=== PATIENT | male | born 1985 | race Caucasian/White ===

== ENCOUNTER 2023-09-22 11:17 | Inpatient (IN) | payer MEDICARE, MEDICAID, SELFPAY ==
[2023-09-22] VITALS (12 sets, daily range): BP systolic 120–157; BP diastolic 64–94; PULSE 104–125; RESP 16–30; TEMP 36.8–36.9; O2SAT 93–98; BMI 46.0; BMI 43.2
--- NOTE | ~2023-09-22 | CT_ITS ---
EXAMINATION: CT ABDOMEN AND PELVIS WITH CONTRAST CLINICAL INFORMATION: Abdomen pain. Diarrhea COMPARISON: None available. TECHNIQUE: Multidetector volumetric images were obtained from the superior aspect of the liver through the pubic symphysis following administration 85 mL of Omnipaque 350 intravenous contrast. Sagittal and coronal reformatted images were obtained on the technologist's workstation. Oral contrast: No This CT examination was performed using dose optimization techniques as appropriate, variously including the following: *Automated exposure control *Adjustment of mA and/or kV according to patient size (this includes techniques or standardized protocols for targeted exams where dose is matched to indication/reason for exam; i.e. extremities or head) *Use of iterative reconstruction technique DLP: 1346 mGy-cm FINDINGS: There is severe artifact possibly related to habitus or positioning of the upper extremities. This limits the exam LUNG BASES: No suspicious abnormality in the visualized lower chest. LIVER, GALLBLADDER, AND BILIARY TREE: The right lobe of the liver measures 24.4 cm. This is more than 3 standard deviations above the mean expected. There is severe diffuse low-attenuation within the liver consistent with fatty change. There is some sparing around the gallbladder. There is no opaque gallstone. No definite biliary dilation PANCREAS: No large abnormality. SPLEEN: The spleen measures 11.9 cm. This is within one standard deviation above the mean expected. No suspicious focal lesion. ADRENAL GLANDS: No suspicious mass KIDNEYS AND URETERS: No dilation of the urinary collecting system. There is a circumscribed low attenuating round mass in the lower pole of the right kidney consistent with a cyst. This does not require any specific imaging follow-up. Attenuation values are unreliable given the artifact. BLADDER: Limited by artifact. No large abnormality. GASTROINTESTINAL TRACT: Limited by artifact. Large amount of fecal residue throughout the colon. No localized pericolonic fat stranding. No CT evidence of acute appendicitis. No distention of the stomach. Multiple scattered top normal caliber small bowel loops. There is no definite omental or mesenteric mass. ABDOMINAL WALL: No significant hernia is appreciated. LYMPH NODES: There are some scattered nonspecific inguinal lymph nodes. There is no significant free intraperitoneal fluid. VASCULAR: There is no abdominal aortic aneurysm. The portal vein enhances. PELVIC VISCERA: Limited by artifact. No definite abnormality OSSEOUS STRUCTURES: No suspicious focal lesion CT/CT abdomen pelvis w IV con IMPRESSION: Markedly limited exam. No etiology for diarrhea demonstrated. No abscess or bowel obstruction demonstrated. Hepatomegaly with severe fatty change. Fleischner guidelines were followed.
--- NOTE | ~2023-09-22 | XR_ITS ---
EXAMINATION: XR CHEST CLINICAL INFORMATION: DKA. COMPARISON: None available. TECHNIQUE: Frontal view of the chest was obtained. FINDINGS: Low lung volumes with diffuse interstitial prominence. No dense consolidation. No pleural effusion or pneumothorax. Normal appearance of the cardiomediastinal silhouette accounting for the limitations of portable technique. No acute osseous findings. XR/XR chest 1V IMPRESSION: Diffuse interstitial prominence is indeterminate and could be related with bronchovascular crowding, small airways disease or atypical/viral infection.. No dense consolidation or pleural effusion.
--- NOTE | 2023-09-22 11:30 | ED.NAVMDI ---
HPI - Nausea/Vomiting/Diarrhea General Chief complaint: Abdominal Pain Stated complaint: NAUSEA VOMITING Time Seen by Provider: 09/22/23 11:23 Source: patient History of Present Illness HPI Narrative: This is a 37 years old male presented to the emergency department complaining of nausea and vomiting, patient has history of bipolar disorder, development delayed, obesity, hypertension and diabetes. He is currently staying an psychiatric facility. He was sent here for evaluation MD elicited complaint: nausea and vomiting Pertinent past history: other (diabetes) Onset (ago): week(s) (2) Description of vomiting: watery Associated nausea: Yes Associated abdominal pain: Yes Radiation: periumbilical Exacerbating factors: none Relieving factors: none Related Data Home Medications ?Medication ?Instructions ?Recorded ?Confirmed acetaminophen 325 mg tablet 650 mg PO Q6H PRN Pain 09/22/23 09/22/23 aluminum-mag hydroxide-simethicone 30 ml PO Q6H PRN Dyspepsia 09/22/23 09/22/23 200 mg-200 mg-20 mg/5 mL oral susp atorvastatin 20 mg tablet 20 mg PO BEDTIME 09/22/23 09/22/23 cyanocobalamin (vitamin B-12) 2,000 mcg PO DAILY 09/22/23 09/22/23 1,000 mcg tablet diclofenac sodium 1 % topical gel 4 g topical TID PRN arthritis 09/22/23 09/22/23 hydroxyzine pamoate 50 mg capsule 50 mg PO Q6H PRN Restlessness 09/22/23 09/22/23 ketoconazole 2 % shampoo 1 appl topical DAILY 09/22/23 09/22/23 lisinopril 20 mg tablet 20 mg PO DAILY 09/22/23 09/22/23 magnesium hydroxide 400 mg/5 mL 30 ml PO DAILY PRN Constipation 09/22/23 09/22/23 oral suspension (Milk of Magnesia) metformin 1,000 mg tablet 1,000 mg PO BIDAC 09/22/23 09/22/23 mineral oil-hydrophil petrolat 1 appl topical BID 09/22/23 09/22/23 topical ointment olanzapine 15 mg tablet 15 mg PO BEDTIME 09/22/23 09/22/23 olanzapine 5 mg tablet 5 mg PO Q6H PRN Agitation 09/22/23 09/22/23 oxcarbazepine 150 mg tablet 150 mg PO BID 09/22/23 09/22/23 oxcarbazepine 300 mg tablet 300 mg PO BID 09/22/23 09/22/23 polyethylene glycol 3350 17 17 g PO DAILY PRN Constipation 09/22/23 09/22/23 gram/dose oral powder (Miralax) trazodone 50 mg tablet 50 mg PO BEDTIME PRN Insomnia 09/22/23 09/22/23 urea 40 % topical cream 1 appl topical BID PRN Dry Skin 09/22/23 09/22/23 Allergies Allergy/AdvReac Type Severity Reaction Status Date / Time No Known Allergies Allergy Verified 09/22/23 11:28 Review of Systems ENT: Reports system reviewed and no additional complaints, except as documented Gastrointestinal: Gastrointestinal: Reports nausea and Reports vomiting PMFSH Past Medical History Attestation statement: The following information was validated with the patient. Source: unable to obtain Social History Social History Advance Directives: No Advance Directives Information Provided: No Do you have a plan to hurt others: No Plan Physical Exam Vital Signs: Vital Signs: Last Vital Signs Temp 98.4 F 09/22/23 11:33 Pulse 125 H 09/22/23 15:23 Resp 16 09/22/23 15:23 BP 120/64 09/22/23 15:23 Pulse Ox 93 09/22/23 15:23 O2 Del Method Room Air 09/22/23 15:23 BMI result Body Mass Index 43.2 No toxic-appearing Const: General: cooperative Nutritional Appearance: well nourished Orientation/consciousness: patient oriented x3 Limitations: no limitations HEENT: Head: Yes normal to inspection General nose exam: Normal external nose present Face and sinus: Yes normal facial exam Mouth: Normal oral and palatal mucosa present Neck: Neck: Yes normal visual inspection and Yes full ROM Chest: Chest palpation & inspection: normal inspection of the chest Resp: Effort & Inspection: normal respiratory effort Auscultation: clear to auscultation bilaterally Cardio: Jugular venous distension: no JVD Rate: regular rate Rhythm: regular rhythm GI: Inspection: Yes normal to inspection Palpation (GI): Soft to palpation, nontender and no guarding Auscultation: normal bowel sounds Skin: General skin exam: no rashes or lesions noted Neuro: General: patient oriented x3 Course Reevaluation(s) Reevaluation #1: we are waiting for chemistry result,just spoke with labs specimen was hemolized they are requesting new chemestry sample nurse will send new chemistry,capillary blood sugar high d.d. DKA Time: 13:32 Reevaluation #2: ICU doctor here Medications Administered Generic Name Dose Route Start Last Admin Trade Name Freq PRN Reason Stop Dose Admin Heparin Sodium (Porcine) 5,000 unit 09/22/23 14:15 09/22/23 14:33 Heparin Sodium,Porcine 5,000 Unit/Ml Vial SUBCUT 5,000 unit Q8H AGNES Administration Insulin Human Regular 100 unit in 100 mls @ 8 mls/hr 09/22/23 13:45 09/22/23 15:27 Myxredlin IVCONT 4 unit/hr .[id number] AGNES 4 mls/hr Titration Protocol 8 UNIT/HR Pantoprazole Sodium 40 mg 09/22/23 15:00 09/22/23 15:05 Pantoprazole Sodium 40 Mg/10 Ml Vial IVPUSH 40 mg DAILY@0630 AGNES Administration Discontinued Medications Generic Name Dose Route Start Last Admin Trade Name Freq PRN Reason Stop Dose Admin Sodium Chloride 1,000 mls @ 999 mls/hr 09/22/23 11:30 09/22/23 14:37 Ns IVCONT 09/22/23 12:30 Infused .Q1H1M AGNES Infusion Sodium Chloride 1,000 mls @ 999 mls/hr 09/22/23 13:00 09/22/23 13:58 Ns IVCONT 09/22/23 14:00 0 mls/hr .Q1H1M AGNES Infusion Lactated Ringer's 1,000 mls @ 999 mls/hr 09/22/23 14:06 09/22/23 14:53 Lr IV 09/22/23 15:06 999 mls/hr .Q1H1M ONE Administration Lactated Ringer's 500 mls @ 999 mls/hr 09/22/23 14:07 09/22/23 15:42 Lr IV 09/22/23 14:37 Infused .Q31M ONE Infusion Ceftriaxone Sodium 2 gm/ 50 mls @ 100 mls/hr 09/22/23 14:07 09/22/23 15:42 Sodium Chloride IV 09/22/23 14:36 Infused DAILY ONE Infusion Insulin Human Regular 10 unit 07/21/24 12:52 09/22/23 13:00 Insulin Regular, Human 100 Unit/Ml 10 Ml Vial IVPUSH 09/22/23 12:53 10 unit ONCE ONE Administration Lorazepam 1 mg 09/22/23 14:00 09/22/23 14:04 Lorazepam 2 Mg/Ml Vial IVPUSH 09/22/23 14:01 1 mg ONCE ONE Administration Ondansetron HCl 4 mg 09/22/23 11:36 09/22/23 12:09 Ondansetron Hcl 4 Mg/2 Ml Vial IVPUSH 09/22/23 11:37 4 mg ONCE ONE Administration Procedures EJ/Peripheral Line Arm L: Time Out Performed: Yes Skin Cleansed in Sterile Fashion: Yes Size (gauge): 20 IV Secured and Dressing Applied: Yes Patient Tolerated Procedure: well Additional Comments: under US cannulated left brachial vein with 20 G good flash good blood return Medical Decision Making Medical Decision Making MDM Narrative: Patient presented with nausea vomiting will check labs administer fluid antiemetic reassess Differential Diagnosis Differential Diagnoses: The differential diagnosis associated with the presentation includes Small-bowel obstruction/DKA/dehydration/gastroenteritis Admission/Observation Consideration of admission/observation: Escalation of care including admission/observation considered Consult Healthcare Provider spoke with ICY team Lab Data 09/22/23 14:57 09/22/23 14:57 Labs: Lab Results 09/22/23 09/22/23 09/22/23 Range/Units 12:00 12:46 12:50 WBC 18.2 H (4.8-10.8) X10*3/uL RBC 4.98 (4.60-5.80) X10*6/uL Hgb 14.5 (14.0-18.0) g/dl Hct 44.2 (42.0-52.0) % MCV 88.8 (80.0-98.0) fL MCH 29.1 (27.0-33.0) pg MCHC 32.8 (31.0-36.0) g/dl RDW 12.9 (11.0-16.0) % Plt Count 390 (160-400) X10*3/uL MPV 10.6 (9.4-12.4) fL Immature Gran % (Auto) 0.4 (0.0-0.4) % Neut % (Auto) 84.9 H (45-73) % Lymph % (Auto) 7.5 L (20-40) % Dent % (Auto) 7.0 (2-11) % Eos % (Auto) 0.0 (0-4) % Baso % (Auto) 0.2 (0-2) % Lymph # (Auto) 1.4 (1.2-4.9) X10*3/uL Dent # (Auto) 1.3 H (0.1-1.2) X10*3/uL Eos # (Auto) 0.0 (0.0-0.4) X10*3/uL Baso # (Auto) 0.0 (0.0-0.2) X10*3/uL Abs Immat Gran (auto) 0.08 H (0.00-0.03) X10*3/uL Absolute Neuts (auto) 15.4 H (2.0-8.3) x10*3/uL Absolute Nucleated RBC 0.000 (0.0-0.012) X10*3/uL Nucleated RBC % (auto) 0.0 (0.0-0.2) /100WBC Sodium (135-145) mmol/L Potassium (3.3-5.1) mmol/L Chloride (96-108) mmol/L Carbon Dioxide (22-29) mmol/L Anion Gap (12-20) BUN (9-16) mg/dL Creatinine (0.5-1.4) mg/dL Estim Creat Clear Calc Estimated GFR POC Glucose > 600 H* > 600 H* (60-115) mg/dL Random Glucose (60-115) mg/dL Calcium (8.4-10.2) mg/dL Total Bilirubin (0.0-1.0) mg/dL AST (5-37) U/L ALT (0-40) U/L Alkaline Phosphatase (39-117) U/L Total Protein (6.5-8.0) g/dL Albumin (3.5-5.0) g/dL Lipase 17 (8-78) U/L Beta-Hydroxybutyrate (0.02-0.27) mmol/L //24 Range/Units 13:06 WBC (4.8-10.8) X10*3/uL RBC (4.60-5.80) X10*6/uL Hgb (14.0-18.0) g/dl Hct (42.0-52.0) % MCV (80.0-98.0) fL MCH (27.0-33.0) pg MCHC (31.0-36.0) g/dl RDW (11.0-16.0) % Plt Count (160-400) X10*3/uL MPV (9.4-12.4) fL Immature Gran % (Auto) (0.0-0.4) % Neut % (Auto) (45-73) % Lymph % (Auto) (20-40) % Dent % (Auto) (2-11) % Eos % (Auto) (0-4) % Baso % (Auto) (0-2) % Lymph # (Auto) (1.2-4.9) X10*3/uL Dent # (Auto) (0.1-1.2) X10*3/uL Eos # (Auto) (0.0-0.4) X10*3/uL Baso # (Auto) (0.0-0.2) X10*3/uL Abs Immat Gran (auto) (0.00-0.03) X10*3/uL Absolute Neuts (auto) (2.0-8.3) x10*3/uL Absolute Nucleated RBC (0.0-0.012) X10*3/uL Nucleated RBC % (auto) (0.0-0.2) /100WBC Sodium 130 L (135-145) mmol/L Potassium 6.0 H* (3.3-5.1) mmol/L Chloride 93 L (96-108) mmol/L Carbon Dioxide 12 L (22-29) mmol/L Anion Gap 31 H (12-20) BUN 24 H (9-16) mg/dL Creatinine 1.99 H (0.5-1.4) mg/dL Estim Creat Clear Calc 71.4 Estimated GFR 38 POC Glucose (60-115) mg/dL Random Glucose 898 H* (60-115) mg/dL Calcium 10.2 (8.4-10.2) mg/dL Total Bilirubin 0.5 (0.0-1.0) mg/dL AST 14 (5-37) U/L ALT 40 (0-40) U/L Alkaline Phosphatase 136 H (39-117) U/L Total Protein 7.6 (6.5-8.0) g/dL Albumin 4.1 (3.5-5.0) g/dL Lipase (8-78) U/L Beta-Hydroxybutyrate 7.91 H (0.02-0.27) mmol/L Critical Care Time Critical Care Time Critical Care Time: Yes Total Critical Care Time: 90 Attestation: taking care of pt ,speaking to the staff of [facility] hospital Discharge Plan Discharge Clinical Impression: DKA (diabetic ketoacidosis) Qualifiers: Diabetes mellitus type: type 2 Diabetes mellitus complication detail: without coma Qualified Code(s): E11.10 - Type 2 diabetes mellitus with ketoacidosis without coma Patient Disposition: Admitted As Inpatient
--- NOTE | 2023-09-22 11:43 | PC.NURSE ---
Pt. is on monitoring specialist at this time.
[2023-09-22 12:05] LABS: Basophils Percent Auto 0.2 % (0-2); Hematocrit 44.2 % (42.0-52.0); Hemoglobin 14.5 g/dl (14.0-18.0); Imm Gran Abs Auto 0.08 X10*3/uL (0.00-0.03); Imm Gran Pct Auto 0.4 % (0.0-0.4); Lymphocytes Absolute Auto 1.4 X10*3/uL (1.2-4.9); Lymphocytes Percent Auto 7.5 % (20-40); MANUAL DIFF FLAG NO; Mean Corpuscular HGB Conc 32.8 g/dl (31.0-36.0); Mean Corpuscular Hemoglobin 29.1 pg (27.0-33.0); Mean Corpuscular Volume 88.8 fL (80.0-98.0); Mean Platelet Volume 10.6 fL (9.4-12.4); Monocytes Absolute Auto 1.3 X10*3/uL (0.1-1.2); Neutrophils Absolute Auto 15.4 x10*3/uL (2.0-8.3); Neutrophils Percent Auto 84.9 % (45-73); Platelet Count 390 X10*3/uL (160-400); Red Blood Count 4.98 X10*6/uL (4.60-5.80); Red Cell Distribution Width 12.9 % (11.0-16.0); White Blood Count 18.2 X10*3/uL (4.8-10.8)
[2023-09-22] MEDS: ondansetron HCL 4 MG/2 ML VIAL IVPUSH (12:09)
[2023-09-22] MEDS: 0.9 % Sodium Chloride 1,000 ML 999 ML IVCONT ×2 (12:09→13:01)
[2023-09-22 12:58] LABS: Glucose, Whole Blood > 600 mg/dL (60-115)
[2023-09-22 12:58] LABS: Glucose, Whole Blood > 600 mg/dL (60-115)
[2023-09-22] MEDS: Insulin Regular, Human 100 UNIT/ML 10 ML VIAL 10 UNIT IVPUSH (13:00)
--- NOTE | 2023-09-22 13:32 | ECG_ITS ---
Test Reason : CHEST PAIN Blood Pressure : / mmHG Vent. Rate : 120 BPM Atrial Rate : 120 BPM P-R Int : 140 ms QRS Dur : 090 ms QT Int : 318 ms P-R-T Axes : 043 027 026 degrees QTc Int : 449 ms Sinus tachycardia cannot exclude old Septal infarct , age undetermined ; can also be from body habitus and lead placement. Abnormal ECG No previous ECGs available Referred By: Koffi Aguilar Electronically Signed By:PILO AGUILAR
[2023-09-22 13:41] LABS: Alanine Aminotransferase 40 U/L (0-40); Albumin Level 4.1 g/dL (3.5-5.0); Alkaline Phosphatase 136 U/L (39-117); Anion Gap 31 (12-20); Aspartate Amino Transferase 14 U/L (5-37); Beta-Hydroxybutyrate 7.91 mmol/L (0.02-0.27); Bilirubin Total 0.5 mg/dL (0.0-1.0); Blood Urea Nitrogen 24 mg/dL (9-16); Calcium 10.2 mg/dL (8.4-10.2); Carbon Dioxide 12 mmol/L (22-29); Chloride 93 mmol/L (96-108); Creatinine Clr Calc Pharmacy 71.4; Estimated Glomerular Filt Rate 38; Glucose Random 898 mg/dL (60-115); Sodium 130 mmol/L (135-145); Total Protein 7.6 g/dL (6.5-8.0)
[2023-09-22 13:42] LABS: Lipase 17 U/L (8-78)
[2023-09-22] MEDS: LORazepam 2 MG/ML VIAL 1 MG IVPUSH (14:04)
[2023-09-22] MEDS: Insulin Regular/NS 100 UNIT/100 ML PLAST..BAG 8 UNIT IVCONT (14:08)
--- NOTE | 2023-09-22 14:24 | P.HPCC_ITS ---
History of Present Illness Date of Service: 09/22/23 Chief Complaint: vomiting, diarrhea 37-year-old male with past medical history of type 1 diabetes mellitus, obesity, mental retardation, schizophrenia lives in a retirement is a very poor historian and is unable to give me any proper history. States he presented to the hospital because he vomited so much that his bed was full of vomitus, he also has been having diarrhea but not showed how long has been having diarrhea. He denies any abdominal pain, denies any burning micturition. Upon asking if he has any cough he says he always has cough. He also says he has decrease in appetite and feels like not eating any food for a very very long time that he is not able to quantify. In the ED he was found to be in severe DKA with potassium 7, bicarb 12, anion gap 30 along with CHARLEE so MICU was consulted for admission. Review of Systems 2 Constitutional: Constitutional: Reports anorexia, Denies body ache(s) and Denies chills Eyes: Eyes: Denies blurry vision, Denies exophthalmos and Denies change in vision ENT: Denies Normal hearing present and Denies bleeding gums Cardiovascular: Cardiovascular: Denies Abdominal Cramping after Meds, Denies Abdominal Distension, Denies chest pain and Denies chest pain at rest Respiratory: Respiratory: Denies chest congestion and Denies cough Gastrointestinal: Gastrointestinal: Denies abdominal pain and Denies belching Genitourinary: Genitourinary: Denies change in libido and Denies hematuria Musculoskeletal: Musculoskeletal: Denies back pain and Denies myalgias Neurologic: Denies Normal hearing present and Denies behavioral changes Psychiatric: Psychiatric: Denies abnormal sleep pattern, Denies anxiety, Denies behavioral changes and Denies change in libido Endocrine: Endocrine: Denies change in libido [facility] Social History Social History Advance Directives: No Advance Directives Information Provided: No Do you have a plan to hurt others: No Plan Meds Allergies Allergy/AdvReac Type Severity Reaction Status Date / Time No Known Allergies Allergy Verified 09/22/23 11:28 Active Medications: Current Medications Heparin Sodium (Porcine) (Heparin Sodium,Porcine 5,000 Unit/Ml Vial) 5,000 unit SUBCUT Q8H AGNES Insulin Human Regular (Myxredlin) 100 unit in 100 mls @ 8 mls/hr IVCONT .[id number] [facility]; Protocol Last Admin: 09/22/23 14:08 Dose: 8 unit/hr, 8 mls/hr Dextrose (D10) 250 mls @ 750 mls/hr IV Q30M PRN PRN Reason: BG <70 Dextrose (D10) 250 mls @ 750 mls/hr IV Q30M PRN PRN Reason: BG <70 Lactated Ringer's (Lr) 1,000 mls @ 999 mls/hr IV .Q1H1M ONE Stop: 09/22/23 15:06 Lactated Ringer's (Lr) 1,000 mls @ 150 mls/hr IVCONT .Q6H40M [facility] Lactated Ringer's (Lr) 500 mls @ 999 mls/hr IV .Q31M ONE Stop: 09/22/23 14:37 Ceftriaxone Sodium 2 gm/ (Sodium Chloride) 50 mls @ 100 mls/hr IV DAILY ONE Stop: 09/22/23 14:36 Physical Exam 2 Vital Signs: Vital Signs: Last Vital Signs Temp 98.4 F 09/22/23 11:33 Pulse 121 H 09/22/23 14:23 Resp 24 H 09/22/23 14:23 BP 143/78 H 09/22/23 14:23 Pulse Ox 95 09/22/23 14:23 O2 Del Method Room Air 09/22/23 14:23 BMI result Body Mass Index 43.2 General: In mild acute distress, tired appearing Nutritional Appearance: well nourished and overweight Eyes: appearance normal, both eyes and all related structures; Alignment and Position: alignment normal and position normal Neck: No lymphadenopathy, no thyromegaly Resp: bilateral air entry equal, no added sounds present Cardio: Regular rate, regular rhythm; Heart sounds: S1 normal heart sound present and S2 normal heart sound present GI: soft, nontender, no guarding, no hepatosplenomegaly : bladder normal to inspection, bladder normal to palpation, no renal angle tenderness Skin: no rashes or lesions noted and elasticity normal Neuro: oriented to person, oriented to place, oriented to time and moves all extremities Neuro: Cranial nerves: No Normal hearing present Results Labs 09/22/23 12:00 09/22/23 13:06 Labs: Laboratory Results - last 24 hr 09/22/23 09/22/23 09/22/23 12:00 12:46 12:50 MCV 88.8 MCH 29.1 MCHC 32.8 RDW 12.9 Plt Count 390 MPV 10.6 Immature Gran % (Auto) 0.4 Neut % (Auto) 84.9 H Lymph % (Auto) 7.5 L [place] % (Auto) 7.0 Eos % (Auto) 0.0 Baso % (Auto) 0.2 Lymph # (Auto) 1.4 [place] # (Auto) 1.3 H Eos # (Auto) 0.0 Baso # (Auto) 0.0 Abs Immat Gran (auto) 0.08 H Absolute Neuts (auto) 15.4 H Absolute Nucleated RBC 0.000 Nucleated RBC % (auto) 0.0 Anion Gap Estim Creat Clear Calc Estimated GFR POC Glucose > 600 H* > 600 H* Random Glucose Calcium Total Bilirubin AST ALT Alkaline Phosphatase Total Protein Albumin Lipase 17 Beta-Hydroxybutyrate 09/22/23 13:06 MCV MCH MCHC RDW Plt Count MPV Immature Gran % (Auto) Neut % (Auto) Lymph % (Auto) [place] % (Auto) Eos % (Auto) Baso % (Auto) Lymph # (Auto) [place] # (Auto) Eos # (Auto) Baso # (Auto) Abs Immat Gran (auto) Absolute Neuts (auto) Absolute Nucleated RBC Nucleated RBC % (auto) Anion Gap 31 H Estim Creat Clear Calc 71.4 Estimated GFR 38 POC Glucose Random Glucose 898 H* Calcium 10.2 Total Bilirubin 0.5 AST 14 ALT 40 Alkaline Phosphatase 136 H Total Protein 7.6 Albumin 4.1 Lipase Beta-Hydroxybutyrate 7.91 H Assessment and Plan (1) DKA (diabetic ketoacidosis): Qualifiers: Diabetes mellitus complication detail: without coma Diabetes mellitus type: type 2 Qualified Code(s): E11.10 - Type 2 diabetes mellitus with ketoacidosis without coma Status: Acute (2) Uncontrolled blood glucose: Status: Acute (3) Acute kidney injury: Status: Acute (4) Obesity: Status: Acute Plan Diabetic ketoacidosis: Possibly precipitated by a GI infection very complaints of diarrhea We will start the patient on insulin drip and continue insulin drip until the gap closes according to DKA protocol We will check blood sugars q.1h hours and titrate the insulin drip accordingly We will get BMP, Mag phos every 4 hours NPO until the gap closes We will give him 2 L of LR boluses followed by 150 cc/hour of LR Acute kidney injury: Secondary to DKA and volume depletion Should correct with correction of the DKA Leukocytosis: Secondary to GI infection We will get chest x-ray, urinalysis and blood cultures We will start on empiric ceftriaxone Prophylaxis: Heparin, pantoprazole Total time managing care of this patient today: 40 minutes.
[2023-09-22 14:27] LABS: VBG Base Excess -10.7 mmol/L; VBG HCO3 15 mmol/L (22-26); VBG pCO2 36 mmHg; VBG pH 7.24 (7.32-7.43); VBG pO2 50 mmHg
[2023-09-22 14:29] LABS: Venous Blood Gas Refer to POC result
[2023-09-22] MEDS: Heparin Sodium,Porcine 5,000 UNIT/ML VIAL 5000 UNIT SUBCUT ×2 (14:33→23:05)
[2023-09-22 14:48] LABS: Glucose, Whole Blood > 600 mg/dL (60-115)
[2023-09-22] MEDS: Lactated Ringers 500 ML 999 ML IV (14:52)
[2023-09-22] MEDS: Lactated Ringers 1,000 ML 999 ML IV (14:53)
--- NOTE | 2023-09-22 14:57 | PC.NURSE ---
#20 placed in the right FA, IV LR running per MAR
--- NOTE | 2023-09-22 15:02 | PHA.MEDREC ---
Pharmacy Consult ? Medication Reconciliation Pharmacy has completed the medication reconciliation. Used list from facility
[2023-09-22] MEDS: cefTRIAXone sodium 2 GM in 0.9 % Sodium Chloride 50 ML IV (15:05)
[2023-09-22] MEDS: Pantoprazole Sodium 40 MG/10 ML VIAL IVPUSH (15:05)
[2023-09-22 15:10] LABS: Hematocrit 42.8 % (42.0-52.0); Hemoglobin 14.3 g/dl (14.0-18.0); Mean Corpuscular HGB Conc 33.4 g/dl (31.0-36.0); Mean Corpuscular Hemoglobin 29.1 pg (27.0-33.0); Mean Corpuscular Volume 87.2 fL (80.0-98.0); Mean Platelet Volume 10.4 fL (9.4-12.4); Platelet Count 400 X10*3/uL (160-400); Red Blood Count 4.91 X10*6/uL (4.60-5.80); Red Cell Distribution Width 12.5 % (11.0-16.0); White Blood Count 18.1 X10*3/uL (4.8-10.8)
--- NOTE | 2023-09-22 15:11 | PC.NURSE ---
#20 placed in the left wrist
[2023-09-22 15:22] LABS: Magnesium 2.4 mg/dL (1.6-2.6)
[2023-09-22 15:26] LABS: Anion Gap 28 (12-20); Blood Urea Nitrogen 21 mg/dL (9-16); Calcium 10.1 mg/dL (8.4-10.2); Carbon Dioxide 13 mmol/L (22-29); Chloride 100 mmol/L (96-108); Creatinine Clr Calc Pharmacy 80.8; Estimated Glomerular Filt Rate 44; Glucose Random 634 mg/dL (60-115); Potassium 5.2 mmol/L (3.3-5.1); Sodium 136 mmol/L (135-145)
[2023-09-22 15:30] LABS: Glucose, Whole Blood 536 mg/dL (60-115)
[2023-09-22 15:43] LABS: Appearance Urine Clear; Color Urine Yellow; Glucose Urine UA >=1000 mg/dL (Negative); Leukocyte Esterase Urine Negative (Negative); Nitrite Urine Negative (Negative); Specific Gravity - Urine >= 1.030 (1.005-1.025); UMIC TRIGGER UACC YES; Urine Blood Negative (Negative); Urine Ketones >=160 mg/dL (Negative); Urine Protein Negative (Neg-Trace)
[2023-09-22 16:19] LABS: Bacteria Urine None Seen (None Seen); Hyaline Casts Urine 0-2 /LPF (0-2); RBC Urine 0-2 /HPF (0-2); Squamous Epithelial Cell Urine 0-2 /HPF (0-2); WBC Urine 0-5 /HPF (0-5)
[2023-09-22] MEDS: Lactated Ringers 1,000 ML 150 ML IVCONT ×2 (16:45→23:23)
[2023-09-22 17:04] LABS: Glucose, Whole Blood 421 mg/dL (60-115)
[2023-09-22 18:03] LABS: Glucose, Whole Blood 358 mg/dL (60-115)
[2023-09-22 18:57] LABS: Anion Gap 25 (12-20); Blood Urea Nitrogen 16 mg/dL (9-16); Calcium 9.6 mg/dL (8.4-10.2); Carbon Dioxide 14 mmol/L (22-29); Chloride 104 mmol/L (96-108); Creatinine Clr Calc Pharmacy 96.7; Estimated Glomerular Filt Rate 54; Glucose Random 415 mg/dL (60-115); Magnesium 2.1 mg/dL (1.6-2.6); Phosphorus 2.1 mg/dL (2.7-4.5); Potassium 5.1 mmol/L (3.3-5.1); Sodium 138 mmol/L (135-145)
[2023-09-22 19:05] LABS: Glucose, Whole Blood 344 mg/dL (60-115)
[2023-09-22 20:03] LABS: Glucose, Whole Blood 313 mg/dL (60-115)
[2023-09-22 21:11] LABS: Glucose, Whole Blood 286 mg/dL (60-115)
[2023-09-22 22:20] LABS: Glucose, Whole Blood 263 mg/dL (60-115)
[2023-09-22 23:06] LABS: Anion Gap 18 (12-20); Blood Urea Nitrogen 14 mg/dL (9-16); Calcium 9.1 mg/dL (8.4-10.2); Carbon Dioxide 20 mmol/L (22-29); Chloride 105 mmol/L (96-108); Creatinine Clr Calc Pharmacy 119.5; Estimated Glomerular Filt Rate > 60; Glucose Random 286 mg/dL (60-115); Potassium 3.9 mmol/L (3.3-5.1); Sodium 139 mmol/L (135-145)
[2023-09-22 23:12] LABS: Glucose, Whole Blood 260 mg/dL (60-115)
[2023-09-22] MEDS: Potassium Phosphate/NS 15 MMOL/250 ML PLAST..BAG 62.5 MMOL IV (23:26)
[2023-09-22 23:58] LABS: Glucose, Whole Blood 248 mg/dL (60-115)
[2023-09-23] VITALS (23 sets, daily range): BP systolic 108–155; BP diastolic 67–99; PULSE 87–103; RESP 12–30; TEMP 36.8–36.9; O2SAT 90–97; BMI 46.8
[2023-09-23] MEDS: Dextrose 5 % and Lactated Ring 1,000 ML 100 ML IVCONT ×3 (00:08→16:02)
[2023-09-23 01:04] LABS: Glucose, Whole Blood 252 mg/dL (60-115)
[2023-09-23 01:58] LABS: Glucose, Whole Blood 277 mg/dL (60-115)
[2023-09-23 02:57] LABS: Anion Gap 16 (12-20); Blood Urea Nitrogen 12 mg/dL (9-16); Calcium 9.1 mg/dL (8.4-10.2); Carbon Dioxide 23 mmol/L (22-29); Chloride 107 mmol/L (96-108); Creatinine Clr Calc Pharmacy 130.5; Estimated Glomerular Filt Rate > 60; Glucose Random 254 mg/dL (60-115); Potassium 3.5 mmol/L (3.3-5.1); Sodium 142 mmol/L (135-145)
[2023-09-23 03:09] LABS: Glucose, Whole Blood 226 mg/dL (60-115)
[2023-09-23] MEDS: Potassium Phosphate/NS 15 MMOL/250 ML PLAST..BAG 62.5 MMOL IV ×3 (03:29→18:15)
[2023-09-23] MEDS: Insulin Regular/NS 100 UNIT/100 ML PLAST..BAG 8 UNIT IVCONT (03:35)
[2023-09-23 04:06] LABS: Glucose, Whole Blood 219 mg/dL (60-115)
[2023-09-23] MEDS: Insulin Lispro 100 UNIT/ML 3 ML VIAL SUBCUT ×2 (04:16→19:37)
[2023-09-23 05:09] LABS: Glucose, Whole Blood 224 mg/dL (60-115)
[2023-09-23] MEDS: Pantoprazole Sodium 40 MG/10 ML VIAL IVPUSH (05:30)
[2023-09-23] MEDS: Heparin Sodium,Porcine 5,000 UNIT/ML VIAL 5000 UNIT SUBCUT ×3 (05:30→21:08)
[2023-09-23 05:35] LABS: Anion Gap 18 (12-20); Blood Urea Nitrogen 11 mg/dL (9-16); Calcium 9.1 mg/dL (8.4-10.2); Carbon Dioxide 21 mmol/L (22-29); Chloride 107 mmol/L (96-108); Creatinine Clr Calc Pharmacy 135.4; Estimated Glomerular Filt Rate > 60; Glucose Random 213 mg/dL (60-115); Potassium 3.7 mmol/L (3.3-5.1); Sodium 142 mmol/L (135-145)
[2023-09-23 06:02] LABS: Glucose, Whole Blood 210 mg/dL (60-115)
[2023-09-23] MEDS: Lactated Ringers 500 ML IVCONT (06:04)
[2023-09-23] MEDS: Insulin Regular, Human 100 UNIT/ML 10 ML VIAL IVPUSH (06:07)
[2023-09-23 07:09] LABS: Glucose, Whole Blood 212 mg/dL (60-115)
[2023-09-23] MEDS: Insulin Regular/NS 100 UNIT/100 ML PLAST..BAG 6 UNIT IVCONT (07:24)
--- NOTE | 2023-09-23 07:26 | PC.NURSE ---
0700 POC 212 - TO SHANELLE Mcnamara - restart insulin gtt @ 6u/hr and D5LR @ 100cc/hr - recheck poc q1hr
[2023-09-23 08:04] LABS: Glucose, Whole Blood 240 mg/dL (60-115)
--- NOTE | 2023-09-23 08:43 | P.PNCC_ITS ---
Subjective Subjective Date of Service: 09/23/23 Critical Care Time (minutes): 60 Physical Exam 2 Vital Signs: Vital Signs: Last Vital Signs Temp 98.2 F 09/22/23 23:00 Pulse 91 09/23/23 08:00 Resp 23 H 09/23/23 08:00 BP 154/84 H 09/23/23 08:00 Pulse Ox 95 09/23/23 08:00 O2 Del Method Room Air 09/23/23 08:00 BMI result Body Mass Index 46.8 Const: General: cooperative, healthy appearing, comfortable, no acute distress, well developed, alert, awake and Physically active O rientation/consciousness: patient oriented x3 HEENT: Head: Yes normal to inspection, Yes normocephalic and Yes atraumatic Eyes: General: appearance normal, both eyes and all related structures Neck: Neck: Yes normal visual inspection, Yes no meningeal signs, Yes trachea midline and Yes supple Chest: Chest palpation & inspection: normal inspection of the chest Resp: Other: no appreciable rales, rhonchi, wheezing Effort & Inspection: normal respiratory effort Cardio: Rate: regular rate Rhythm: regular rhythm GI: Inspection: Yes normal to inspection, No Abdominal wall edema and No distended Palpation (GI): Soft to palpation, not firm, nontender, no guarding and not rigid : Male General Exam: Yes normal external exam Skin: General skin exam: no rashes or lesions noted Neuro: General: patient oriented x3, tone normal, moves all extremities, no meningeal signs and no focal motor deficits Extrem: General: Yes normal to inspection, Yes full ROM, Yes capillary refill normal and Yes no clubbing, cyanosis or edema Psych: Appearance: grossly normal Objective Data Labs 09/22/23 14:57 09/23/23 05:14 Labs: Laboratory Results - last 24 hr 09/22/23 09/22/23 09/22/23 12:00 12:46 12:50 WBC 18.2 H RBC 4.98 Hgb 14.5 Hct 44.2 MCV 88.8 MCH 29.1 MCHC 32.8 RDW 12.9 Plt Count 390 MPV 10.6 Immature Gran % (Auto) 0.4 Neut % (Auto) 84.9 H Lymph % (Auto) 7.5 L [place] % (Auto) 7.0 Eos % (Auto) 0.0 Baso % (Auto) 0.2 Lymph # (Auto) 1.4 [place] # (Auto) 1.3 H Eos # (Auto) 0.0 Baso # (Auto) 0.0 Abs Immat Gran (auto) 0.08 H Absolute Neuts (auto) 15.4 H Absolute Nucleated RBC 0.000 Nucleated RBC % (auto) 0.0 VBG pH VBG pCO2 VBG pO2 VBG HCO3 VBG O2 Saturation VBG Base Excess Sodium Potassium Chloride Carbon Dioxide Anion Gap BUN Creatinine Estim Creat Clear Calc Estimated GFR POC Glucose > 600 H* > 600 H* Random Glucose Calcium Phosphorus Magnesium Total Bilirubin AST ALT Alkaline Phosphatase Total Protein Albumin Lipase 17 Beta-Hydroxybutyrate Urine Color Urine Appearance Urine pH Ur Specific [place] Urine Protein Urine Glucose (UA) Urine Ketones Urine Blood Urine Nitrite Ur Leukocyte Esterase Urine RBC Urine WBC Ur Squamous Epith Cells Urine Bacteria Hyaline Casts Urine Yeast 09/22/23 09/22/23 09/22/23 13:06 14:20 14:44 WBC RBC Hgb Hct MCV MCH MCHC RDW Plt Count MPV Immature Gran % (Auto) Neut % (Auto) Lymph % (Auto) [place] % (Auto) Eos % (Auto) Baso % (Auto) Lymph # (Auto) [place] # (Auto) Eos # (Auto) Baso # (Auto) Abs Immat Gran (auto) Absolute Neuts (auto) Absolute Nucleated RBC Nucleated RBC % (auto) VBG pH 7.24 L VBG pCO2 36 VBG pO2 50 VBG HCO3 15 L VBG O2 Saturation 74.0 VBG Base Excess -10.7 Sodium 130 L Potassium 6.0 H* Chloride 93 L Carbon Dioxide 12 L Anion Gap 31 H BUN 24 H Creatinine 1.99 H Estim Creat Clear Calc 71.4 Estimated GFR 38 POC Glucose > 600 H* Random Glucose 898 H* Calcium 10.2 Phosphorus Magnesium Total Bilirubin 0.5 AST 14 ALT 40 Alkaline Phosphatase 136 H Total Protein 7.6 Albumin 4.1 Lipase Beta-Hydroxybutyrate 7.91 H Urine Color Urine Appearance Urine pH Ur Specific [place] Urine Protein Urine Glucose (UA) Urine Ketones Urine Blood Urine Nitrite Ur Leukocyte Esterase Urine RBC Urine WBC Ur Squamous Epith Cells Urine Bacteria Hyaline Casts Urine Yeast 09/22/23 09/22/23 09/22/23 14:57 15:19 15:25 WBC 18.1 H RBC 4.91 Hgb 14.3 Hct 42.8 MCV 87.2 MCH 29.1 MCHC 33.4 RDW 12.5 Plt Count 400 MPV 10.4 Immature Gran % (Auto) Neut % (Auto) Lymph % (Auto) [place] % (Auto) Eos % (Auto) Baso % (Auto) Lymph # (Auto) [place] # (Auto) Eos # (Auto) Baso # (Auto) Abs Immat Gran (auto) Absolute Neuts (auto) Absolute Nucleated RBC 0.000 Nucleated RBC % (auto) 0.0 VBG pH VBG pCO2 VBG pO2 VBG HCO3 VBG O2 Saturation VBG Base Excess Sodium 136 Potassium 5.2 H Chloride 100 Carbon Dioxide 13 L Anion Gap 28 H BUN 21 H Creatinine 1.76 H Estim Creat Clear Calc 80.8 Estimated GFR 44 POC Glucose 536 H* Random Glucose 634 H* Calcium 10.1 Phosphorus 2.0 L Magnesium 2.4 Total Bilirubin AST ALT Alkaline Phosphatase Total Protein Albumin Lipase Beta-Hydroxybutyrate Urine Color Yellow Urine Appearance Clear Urine pH 5.0 Ur Specific [place] >= 1.030 H Urine Protein Negative Urine Glucose (UA) >=1000 H Urine Ketones >=160 Urine Blood Negative Urine Nitrite Negative Ur Leukocyte Esterase Negative Urine RBC 0-2 Urine WBC 0-5 Ur Squamous Epith Cells 0-2 Urine Bacteria None Seen Hyaline Casts 0-2 Urine Yeast Present 09/22/23 09/22/23 09/22/23 17:00 18:00 18:19 WBC RBC Hgb Hct MCV MCH MCHC RDW Plt Count MPV Immature Gran % (Auto) Neut % (Auto) Lymph % (Auto) [place] % (Auto) Eos % (Auto) Baso % (Auto) Lymph # (Auto) [place] # (Auto) Eos # (Auto) Baso # (Auto) Abs Immat Gran (auto) Absolute Neuts (auto) Absolute Nucleated RBC Nucleated RBC % (auto) VBG pH VBG pCO2 VBG pO2 VBG HCO3 VBG O2 Saturation VBG Base Excess Sodium 138 Potassium 5.1 Chloride 104 Carbon Dioxide 14 L Anion Gap 25 H BUN 16 Creatinine 1.47 H Estim Creat Clear Calc 96.7 Estimated GFR 54 POC Glucose 421 H* 358 H* Random Glucose 415 H* Calcium 9.6 Phosphorus 2.1 L Magnesium 2.1 Total Bilirubin AST ALT Alkaline Phosphatase Total Protein Albumin Lipase Beta-Hydroxybutyrate Urine Color Urine Appearance Urine pH Ur Specific [place] Urine Protein Urine Glucose (UA) Urine Ketones Urine Blood Urine Nitrite Ur Leukocyte Esterase Urine RBC Urine WBC Ur Squamous Epith Cells Urine Bacteria Hyaline Casts Urine Yeast 09/22/23 09/22/23 09/22/23 19:00 19:58 21:07 WBC RBC Hgb Hct MCV MCH MCHC RDW Plt Count MPV Immature Gran % (Auto) Neut % (Auto) Lymph % (Auto) [place] % (Auto) Eos % (Auto) Baso % (Auto) Lymph # (Auto) [place] # (Auto) Eos # (Auto) Baso # (Auto) Abs Immat Gran (auto) Absolute Neuts (auto) Absolute Nucleated RBC Nucleated RBC % (auto) VBG pH VBG pCO2 VBG pO2 VBG HCO3 VBG O2 Saturation VBG Base Excess Sodium Potassium Chloride Carbon Dioxide Anion Gap BUN Creatinine Estim Creat Clear Calc Estimated GFR POC Glucose 344 H 313 H 286 H Random Glucose Calcium Phosphorus Magnesium Total Bilirubin AST ALT Alkaline Phosphatase Total Protein Albumin Lipase Beta-Hydroxybutyrate Urine Color Urine Appearance Urine pH Ur Specific [place] Urine Protein Urine Glucose (UA) Urine Ketones Urine Blood Urine Nitrite Ur Leukocyte Esterase Urine RBC Urine WBC Ur Squamous Epith Cells Urine Bacteria Hyaline Casts Urine Yeast 09/22/23 09/22/23 09/22/23 22:01 22:44 23:04 WBC RBC Hgb Hct MCV MCH MCHC RDW Plt Count MPV Immature Gran % (Auto) Neut % (Auto) Lymph % (Auto) [place] % (Auto) Eos % (Auto) Baso % (Auto) Lymph # (Auto) [place] # (Auto) Eos # (Auto) Baso # (Auto) Abs Immat Gran (auto) Absolute Neuts (auto) Absolute Nucleated RBC Nucleated RBC % (auto) VBG pH VBG pCO2 VBG pO2 VBG HCO3 VBG O2 Saturation VBG Base Excess Sodium 139 Potassium 3.9 D Chloride 105 Carbon Dioxide 20 L Anion Gap 18 BUN 14 Creatinine 1.19 Estim Creat Clear Calc 119.5 Estimated GFR > 60 POC Glucose 263 H 260 H Random Glucose 286 H Calcium 9.1 Phosphorus 2.0 L Magnesium 2.0 Total Bilirubin AST ALT Alkaline Phosphatase Total Protein Albumin Lipase Beta-Hydroxybutyrate Urine Color Urine Appearance Urine pH Ur Specific [place] Urine Protein Urine Glucose (UA) Urine Ketones Urine Blood Urine Nitrite Ur Leukocyte Esterase Urine RBC Urine WBC Ur Squamous Epith Cells Urine Bacteria Hyaline Casts Urine Yeast 09/22/23 09/23/23 09/23/23 23:53 00:59 01:54 WBC RBC Hgb Hct MCV MCH MCHC RDW Plt Count MPV Immature Gran % (Auto) Neut % (Auto) Lymph % (Auto) [place] % (Auto) Eos % (Auto) Baso % (Auto) Lymph # (Auto) [place] # (Auto) Eos # (Auto) Baso # (Auto) Abs Immat Gran (auto) Absolute Neuts (auto) Absolute Nucleated RBC Nucleated RBC % (auto) VBG pH VBG pCO2 VBG pO2 VBG HCO3 VBG O2 Saturation VBG Base Excess Sodium Potassium Chloride Carbon Dioxide Anion Gap BUN Creatinine Estim Creat Clear Calc Estimated GFR POC Glucose 248 H 252 H 277 H Random Glucose Calcium Phosphorus Magnesium Total Bilirubin AST ALT Alkaline Phosphatase Total Protein Albumin Lipase Beta-Hydroxybutyrate Urine Color Urine Appearance Urine pH Ur Specific [place] Urine Protein Urine Glucose (UA) Urine Ketones Urine Blood Urine Nitrite Ur Leukocyte Esterase Urine RBC Urine WBC Ur Squamous Epith Cells Urine Bacteria Hyaline Casts Urine Yeast 09/23/23 09/23/23 09/23/23 02:25 03:04 04:02 WBC RBC Hgb Hct MCV MCH MCHC RDW Plt Count MPV Immature Gran % (Auto) Neut % (Auto) Lymph % (Auto) [place] % (Auto) Eos % (Auto) Baso % (Auto) Lymph # (Auto) [place] # (Auto) Eos # (Auto) Baso # (Auto) Abs Immat Gran (auto) Absolute Neuts (auto) Absolute Nucleated RBC Nucleated RBC % (auto) VBG pH VBG pCO2 VBG pO2 VBG HCO3 VBG O2 Saturation VBG Base Excess Sodium 142 Potassium 3.5 Chloride 107 Carbon Dioxide 23 Anion Gap 16 BUN 12 Creatinine 1.09 Estim Creat Clear Calc 130.5 Estimated GFR > 60 POC Glucose 226 H 219 H Random Glucose 254 H Calcium 9.1 Phosphorus Magnesium Total Bilirubin AST ALT Alkaline Phosphatase Total Protein Albumin Lipase Beta-Hydroxybutyrate Urine Color Urine Appearance Urine pH Ur Specific [place] Urine Protein Urine Glucose (UA) Urine Ketones Urine Blood Urine Nitrite Ur Leukocyte Esterase Urine RBC Urine WBC Ur Squamous Epith Cells Urine Bacteria Hyaline Casts Urine Yeast 09/23/23 09/23/23 09/23/23 05:05 05:14 05:58 WBC RBC Hgb Hct MCV MCH MCHC RDW Plt Count MPV Immature Gran % (Auto) Neut % (Auto) Lymph % (Auto) [place] % (Auto) Eos % (Auto) Baso % (Auto) Lymph # (Auto) [place] # (Auto) Eos # (Auto) Baso # (Auto) Abs Immat Gran (auto) Absolute Neuts (auto) Absolute Nucleated RBC Nucleated RBC % (auto) VBG pH VBG pCO2 VBG pO2 VBG HCO3 VBG O2 Saturation VBG Base Excess Sodium 142 Potassium 3.7 Chloride 107 Carbon Dioxide 21 L Anion Gap 18 BUN 11 Creatinine 1.05 Estim Creat Clear Calc 135.4 Estimated GFR > 60 POC Glucose 224 H 210 H Random Glucose 213 H Calcium 9.1 Phosphorus Magnesium Total Bilirubin AST ALT Alkaline Phosphatase Total Protein Albumin Lipase Beta-Hydroxybutyrate Urine Color Urine Appearance Urine pH Ur Specific [place] Urine Protein Urine Glucose (UA) Urine Ketones Urine Blood Urine Nitrite Ur Leukocyte Esterase Urine RBC Urine WBC Ur Squamous Epith Cells Urine Bacteria Hyaline Casts Urine Yeast 09/23/23 09/23/23 07:06 08:01 WBC RBC Hgb Hct MCV MCH MCHC RDW Plt Count MPV Immature Gran % (Auto) Neut % (Auto) Lymph % (Auto) [place] % (Auto) Eos % (Auto) Baso % (Auto) Lymph # (Auto) [place] # (Auto) Eos # (Auto) Baso # (Auto) Abs Immat Gran (auto) Absolute Neuts (auto) Absolute Nucleated RBC Nucleated RBC % (auto) VBG pH VBG pCO2 VBG pO2 VBG HCO3 VBG O2 Saturation VBG Base Excess Sodium Potassium Chloride Carbon Dioxide Anion Gap BUN Creatinine Estim Creat Clear Calc Estimated GFR POC Glucose 212 H 240 H Random Glucose Calcium Phosphorus Magnesium Total Bilirubin AST ALT Alkaline Phosphatase Total Protein Albumin Lipase Beta-Hydroxybutyrate Urine Color Urine Appearance Urine pH Ur Specific [place] Urine Protein Urine Glucose (UA) Urine Ketones Urine Blood Urine Nitrite Ur Leukocyte Esterase Urine RBC Urine WBC Ur Squamous Epith Cells Urine Bacteria Hyaline Casts Urine Yeast Progress Note: A&P Assessment and plan (1) DKA (diabetic ketoacidosis): Status: Acute Plan Patient is a 37 Y M with psychiatric co-morbidities, insulin-dependent diabetes mellitus presenting initially on 09/21 w/ vomiting, diarrhea, found to be in diabetic ketoacidosis N: no acute issues CV: no acute issues R: no acute issues GI: NPO while on insulin gtt; diarrhea, on ceftriaxone/metronidazole : acute renal insufficiency, resolved H: no acute issues ID: diarrhea, on ceftriaxone/metronidazole; to follow-up blood, urine cultures E: insulin-dependent diabetes mellitus; DKA protocol Quality Stroke Does the patient have a stroke diagnosis?: No VTE Prior VTE?: No VTE Risk Level:: Medical - low VTE Device Contraindication: N/A - Device Ordered VTE Drug Contraindication: N/A - Med Ordered
[2023-09-23 09:07] LABS: Glucose, Whole Blood 252 mg/dL (60-115)
[2023-09-23] MEDS: metroNIDAZOLE/NS 500 MG/100 ML PIGGYBACK 100 MG IV ×2 (09:32→16:02)
[2023-09-23] MEDS: cefTRIAXone sodium 2 GM in 0.9 % Sodium Chloride 50 ML IV (09:32)
--- NOTE | 2023-09-23 09:56 | MHC.CM.PN ---
IMM DELIVERED. CM MET WITH PT AT BEDSIDE IN ICU. PT REMAINS ON INSULIN DRIP. PT STATES HE RESIDES AT [facility] [address]. PT IS INDEPENDENT WITH MOBILITY. CM SPOKE WITH NURSE JUSTIN AT [facility] WHO PROVIDED NAME OF PT'S SW AT [facility] (ROSA- ) COPY OF PT'S GUARDIANSHIP WAS REQUESTED AND COPY TO BE FAXED. DP: PLAN TO RETURN TO [facility] ON DC VIA BLS. DC PPW TO BE FAXED TO [phone]. CM WILL CONTINUE TO FOLLOW FOR ANY CHANGE TO DC PLAN/NEEDS.
[2023-09-23 10:06] LABS: Glucose, Whole Blood 221 mg/dL (60-115)
[2023-09-23 11:11] LABS: Glucose, Whole Blood 197 mg/dL (60-115)
[2023-09-23 12:06] LABS: Glucose, Whole Blood 174 mg/dL (60-115)
[2023-09-23] MEDS: Insulin Regular/NS 100 UNIT/100 ML PLAST..BAG 18 UNIT IVCONT (12:09)
[2023-09-23 12:55] LABS: MANUAL DIFF FLAG NO
[2023-09-23 12:58] LABS: Basophils Percent Auto 0.2 % (0-2); Eosinophils Absolute Auto 0.3 X10*3/uL (0.0-0.4); Eosinophils Percent Auto 2.4 % (0-4); Hematocrit 38.5 % (42.0-52.0); Imm Gran Abs Auto 0.04 X10*3/uL (0.00-0.03); Imm Gran Pct Auto 0.3 % (0.0-0.4); Lymphocytes Absolute Auto 3.3 X10*3/uL (1.2-4.9); Lymphocytes Percent Auto 26.8 % (20-40); Mean Corpuscular HGB Conc 33.8 g/dl (31.0-36.0); Mean Corpuscular Hemoglobin 29.6 pg (27.0-33.0); Mean Corpuscular Volume 87.7 fL (80.0-98.0); Mean Platelet Volume 9.8 fL (9.4-12.4); Monocytes Absolute Auto 1.1 X10*3/uL (0.1-1.2); Neutrophils Absolute Auto 7.5 x10*3/uL (2.0-8.3); Neutrophils Percent Auto 61.3 % (45-73); Platelet Count 299 X10*3/uL (160-400); Red Blood Count 4.39 X10*6/uL (4.60-5.80); Red Cell Distribution Width 12.7 % (11.0-16.0); White Blood Count 12.3 X10*3/uL (4.8-10.8)
[2023-09-23 13:08] LABS: Glucose, Whole Blood 142 mg/dL (60-115)
[2023-09-23 13:27] LABS: Anion Gap 16 (12-20); Blood Urea Nitrogen 9 mg/dL (9-16); Calcium 9.3 mg/dL (8.4-10.2); Carbon Dioxide 21 mmol/L (22-29); Chloride 108 mmol/L (96-108); Estimated Glomerular Filt Rate > 60; Glucose Random 149 mg/dL (60-115); Magnesium 1.9 mg/dL (1.6-2.6); Phosphorus 1.9 mg/dL (2.7-4.5); Potassium 3.7 mmol/L (3.3-5.1); Sodium 141 mmol/L (135-145)
[2023-09-23 14:03] LABS: Glucose, Whole Blood 115 mg/dL (60-115)
[2023-09-23 15:02] LABS: Glucose, Whole Blood 104 mg/dL (60-115)
[2023-09-23 16:01] LABS: Glucose, Whole Blood 109 mg/dL (60-115)
[2023-09-23] MEDS: iohexoL 350 MG/ML 100 ML INFUS..BTL IV (16:23)
[2023-09-23 16:47] LABS: Anion Gap 16 (12-20); Blood Urea Nitrogen 8 mg/dL (9-16); Calcium 8.8 mg/dL (8.4-10.2); Carbon Dioxide 21 mmol/L (22-29); Chloride 106 mmol/L (96-108); Creatinine Clr Calc Pharmacy 181.4; Estimated Glomerular Filt Rate > 60; Glucose Random 105 mg/dL (60-115); Magnesium 1.9 mg/dL (1.6-2.6); Phosphorus 3.4 mg/dL (2.7-4.5); Potassium 3.6 mmol/L (3.3-5.1); Sodium 139 mmol/L (135-145)
[2023-09-23] MEDS: Insulin Glargine,Hum.rec.anlog 100 UNIT/ML 10 ML VIAL 30 UNIT SUBCUT (17:17)
[2023-09-23 17:23] LABS: Glucose, Whole Blood 121 mg/dL (60-115)
[2023-09-23 19:10] LABS: Glucose, Whole Blood 282 mg/dL (60-115)
[2023-09-23 20:08] LABS: Venous Blood Gas Refer to POC result
[2023-09-23 20:10] LABS: VBG Base Excess -4.7 mmol/L; VBG HCO3 18 mmol/L (22-26); VBG pCO2 27 mmHg; VBG pH 7.42 (7.32-7.43); VBG pO2 94 mmHg
[2023-09-23 20:19] LABS: Anion Gap 17 (12-20); Blood Urea Nitrogen 9 mg/dL (9-16); Calcium 9.1 mg/dL (8.4-10.2); Carbon Dioxide 18 mmol/L (22-29); Chloride 104 mmol/L (96-108); Creatinine Clr Calc Pharmacy 167.1; Estimated Glomerular Filt Rate > 60; Glucose Random 327 mg/dL (60-115); Magnesium 1.7 mg/dL (1.6-2.6); Phosphorus 3.9 mg/dL (2.7-4.5); Sodium 135 mmol/L (135-145)
[2023-09-23 20:58] LABS: Glucose, Whole Blood 329 mg/dL (60-115)
[2023-09-23] MEDS: Insulin Lispro 100 UNIT/ML 3 ML VIAL 10 UNIT SUBCUT (21:08)
[2023-09-23 22:59] LABS: Glucose, Whole Blood 269 mg/dL (60-115)
[2023-09-24] VITALS (24 sets, daily range): BP systolic 117–162; BP diastolic 59–98; PULSE 78–121; RESP 15–33; TEMP 36.1–36.9; O2SAT 90–99; BMI 47.1
[2023-09-24 00:23] LABS: Glucose, Whole Blood 241 mg/dL (60-115)
[2023-09-24] MEDS: metroNIDAZOLE/NS 500 MG/100 ML PIGGYBACK 100 MG IV ×3 (00:54→17:10)
[2023-09-24 01:28] LABS: Anion Gap 16 (12-20); Blood Urea Nitrogen 8 mg/dL (9-16); Calcium 9.2 mg/dL (8.4-10.2); Carbon Dioxide 21 mmol/L (22-29); Chloride 103 mmol/L (96-108); Creatinine Clr Calc Pharmacy 183.6; Estimated Glomerular Filt Rate > 60; Glucose Random 243 mg/dL (60-115); Magnesium 1.8 mg/dL (1.6-2.6); Phosphorus 3.8 mg/dL (2.7-4.5); Potassium 3.5 mmol/L (3.3-5.1); Sodium 136 mmol/L (135-145)
[2023-09-24 02:00] LABS: Glucose, Whole Blood 244 mg/dL (60-115)
[2023-09-24] MEDS: Heparin Sodium,Porcine 5,000 UNIT/ML VIAL 5000 UNIT SUBCUT ×3 (04:52→21:06)
[2023-09-24] MEDS: Pantoprazole Sodium 40 MG/10 ML VIAL IVPUSH (04:53)
[2023-09-24 05:08] LABS: VBG Base Excess -2.8 mmol/L; VBG HCO3 20 mmol/L (22-26); VBG pCO2 30 mmHg; VBG pH 7.42 (7.32-7.43); VBG pO2 78 mmHg
[2023-09-24 05:11] LABS: Venous Blood Gas Refer to POC result
[2023-09-24 05:12] LABS: MANUAL DIFF FLAG NO
[2023-09-24 05:13] LABS: Basophils Percent Auto 0.2 % (0-2); Eosinophils Absolute Auto 0.4 X10*3/uL (0.0-0.4); Imm Gran Abs Auto 0.03 X10*3/uL (0.00-0.03); Imm Gran Pct Auto 0.3 % (0.0-0.4); Lymphocytes Absolute Auto 2.3 X10*3/uL (1.2-4.9); Lymphocytes Percent Auto 23.9 % (20-40); Mean Corpuscular HGB Conc 33.3 g/dl (31.0-36.0); Mean Corpuscular Hemoglobin 29.3 pg (27.0-33.0); Mean Platelet Volume 9.7 fL (9.4-12.4); Monocytes Percent Auto 10.6 % (2-11); Neutrophils Absolute Auto 5.9 x10*3/uL (2.0-8.3); Platelet Count 238 X10*3/uL (160-400); Red Blood Count 4.09 X10*6/uL (4.60-5.80); Red Cell Distribution Width 12.7 % (11.0-16.0); White Blood Count 9.6 X10*3/uL (4.8-10.8)
[2023-09-24 05:27] LABS: Albumin Level 3.2 g/dL (3.5-5.0); Anion Gap 17 (12-20); Blood Urea Nitrogen 7 mg/dL (9-16); Calcium 8.9 mg/dL (8.4-10.2); Carbon Dioxide 21 mmol/L (22-29); Chloride 103 mmol/L (96-108); Creatinine Clr Calc Pharmacy 193.2; Estimated Glomerular Filt Rate > 60; Glucose Random 268 mg/dL (60-115); Magnesium 1.8 mg/dL (1.6-2.6); Phosphorus 3.8 mg/dL (2.7-4.5); Potassium 3.9 mmol/L (3.3-5.1); Sodium 137 mmol/L (135-145)
[2023-09-24 07:19] LABS: Glucose, Whole Blood 295 mg/dL (60-115)
--- NOTE | 2023-09-24 07:46 | P.PNCC_ITS ---
Subjective Subjective Date of Service: 09/24/23 Interval History: no significant overnight events Critical Care Time (minutes): 60 Physical Exam 2 Vital Signs: Vital Signs: Last Vital Signs Temp 97.0 F 09/24/23 05:00 Pulse 89 09/24/23 07:00 Resp 22 H 09/24/23 07:00 BP 138/88 09/24/23 07:00 Pulse Ox 95 09/24/23 07:00 O2 Del Method Room Air 09/24/23 07:00 BMI result Body Mass Index 46.8 Const: General: cooperative, healthy appearing, comfortable, no acute distress, well developed, alert, awake and Physically active O rientation/consciousness: patient oriented x3 HEENT: Head: Yes normal to inspection, Yes normocephalic and Yes atraumatic Eyes: General: appearance normal, both eyes and all related structures Neck: Neck: Yes normal visual inspection, Yes full ROM, Yes no meningeal signs, Yes trachea midline and Yes supple Chest: Chest palpation & inspection: normal inspection of the chest Resp: Other: no appreciable rales, rhonchi, wheezing Effort & Inspection: normal respiratory effort Cardio: Rate: regular rate Rhythm: regular rhythm GI: Inspection: Yes normal to inspection, No Abdominal wall edema and No distended Palpation (GI): Soft to palpation, not firm, nontender, no guarding and not rigid Skin: General skin exam: no rashes or lesions noted Neuro: General: patient oriented x3, tone normal, moves all extremities, no meningeal signs and no focal motor deficits Extrem: General: Yes normal to inspection, Yes capillary refill normal and Yes no clubbing, cyanosis or edema Psych: Appearance: grossly normal Objective Data Labs 09/24/23 04:55 09/24/23 04:55 Labs: Laboratory Results - last 24 hr 09/23/23 09/23/23 09/23/23 08:01 09:04 10:02 WBC RBC Hgb Hct MCV MCH MCHC RDW Plt Count MPV Immature Gran % (Auto) Neut % (Auto) Lymph % (Auto) [place] % (Auto) Eos % (Auto) Baso % (Auto) Lymph # (Auto) [place] # (Auto) Eos # (Auto) Baso # (Auto) Abs Immat Gran (auto) Absolute Neuts (auto) Absolute Nucleated RBC Nucleated RBC % (auto) VBG pH VBG pCO2 VBG pO2 VBG HCO3 VBG O2 Saturation VBG Base Excess Sodium Potassium Chloride Carbon Dioxide Anion Gap BUN Creatinine Estim Creat Clear Calc Estimated GFR POC Glucose 240 H 252 H 221 H Random Glucose Calcium Phosphorus Magnesium Albumin 09/23/23 09/23/23 09/23/23 11:07 12:02 12:27 WBC 12.3 H RBC 4.39 L Hgb 13.0 L Hct 38.5 L MCV 87.7 MCH 29.6 MCHC 33.8 RDW 12.7 Plt Count 299 D MPV 9.8 Immature Gran % (Auto) 0.3 Neut % (Auto) 61.3 Lymph % (Auto) 26.8 [place] % (Auto) 9.0 Eos % (Auto) 2.4 Baso % (Auto) 0.2 Lymph # (Auto) 3.3 [place] # (Auto) 1.1 Eos # (Auto) 0.3 Baso # (Auto) 0.0 Abs Immat Gran (auto) 0.04 H Absolute Neuts (auto) 7.5 Absolute Nucleated RBC 0.000 Nucleated RBC % (auto) 0.0 VBG pH VBG pCO2 VBG pO2 VBG HCO3 VBG O2 Saturation VBG Base Excess Sodium 141 Potassium 3.7 Chloride 108 Carbon Dioxide 21 L Anion Gap 16 BUN 9 Creatinine 0.87 Estim Creat Clear Calc 171.0 Estimated GFR > 60 POC Glucose 197 H 174 H Random Glucose 149 H Calcium 9.3 Phosphorus 1.9 L Magnesium 1.9 Albumin 09/23/23 09/23/23 09/23/23 13:04 14:00 14:58 WBC RBC Hgb Hct MCV MCH MCHC RDW Plt Count MPV Immature Gran % (Auto) Neut % (Auto) Lymph % (Auto) [place] % (Auto) Eos % (Auto) Baso % (Auto) Lymph # (Auto) [place] # (Auto) Eos # (Auto) Baso # (Auto) Abs Immat Gran (auto) Absolute Neuts (auto) Absolute Nucleated RBC Nucleated RBC % (auto) VBG pH VBG pCO2 VBG pO2 VBG HCO3 VBG O2 Saturation VBG Base Excess Sodium Potassium Chloride Carbon Dioxide Anion Gap BUN Creatinine Estim Creat Clear Calc Estimated GFR POC Glucose 142 H 115 104 Random Glucose Calcium Phosphorus Magnesium Albumin 09/23/23 09/23/23 09/23/23 15:58 16:27 17:12 WBC RBC Hgb Hct MCV MCH MCHC RDW Plt Count MPV Immature Gran % (Auto) Neut % (Auto) Lymph % (Auto) [place] % (Auto) Eos % (Auto) Baso % (Auto) Lymph # (Auto) [place] # (Auto) Eos # (Auto) Baso # (Auto) Abs Immat Gran (auto) Absolute Neuts (auto) Absolute Nucleated RBC Nucleated RBC % (auto) VBG pH VBG pCO2 VBG pO2 VBG HCO3 VBG O2 Saturation VBG Base Excess Sodium 139 Potassium 3.6 Chloride 106 Carbon Dioxide 21 L Anion Gap 16 BUN 8 L Creatinine 0.82 Estim Creat Clear Calc 181.4 Estimated GFR > 60 POC Glucose 109 121 H Random Glucose 105 Calcium 8.8 Phosphorus 3.4 Magnesium 1.9 Albumin 09/23/23 09/23/23 09/23/23 19:05 19:59 20:02 WBC RBC Hgb Hct MCV MCH MCHC RDW Plt Count MPV Immature Gran % (Auto) Neut % (Auto) Lymph % (Auto) [place] % (Auto) Eos % (Auto) Baso % (Auto) Lymph # (Auto) [place] # (Auto) Eos # (Auto) Baso # (Auto) Abs Immat Gran (auto) Absolute Neuts (auto) Absolute Nucleated RBC Nucleated RBC % (auto) VBG pH 7.42 VBG pCO2 27 VBG pO2 94 VBG HCO3 18 L VBG O2 Saturation 99.0 VBG Base Excess -4.7 Sodium 135 Potassium 4.0 Chloride 104 Carbon Dioxide 18 L Anion Gap 17 BUN 9 Creatinine 0.89 Estim Creat Clear Calc 167.1 Estimated GFR > 60 POC Glucose 282 H Random Glucose 327 H Calcium 9.1 Phosphorus 3.9 Magnesium 1.7 Albumin 09/23/23 09/23/23 09/24/23 20:55 22:55 00:18 WBC RBC Hgb Hct MCV MCH MCHC RDW Plt Count MPV Immature Gran % (Auto) Neut % (Auto) Lymph % (Auto) [place] % (Auto) Eos % (Auto) Baso % (Auto) Lymph # (Auto) [place] # (Auto) Eos # (Auto) Baso # (Auto) Abs Immat Gran (auto) Absolute Neuts (auto) Absolute Nucleated RBC Nucleated RBC % (auto) VBG pH VBG pCO2 VBG pO2 VBG HCO3 VBG O2 Saturation VBG Base Excess Sodium Potassium Chloride Carbon Dioxide Anion Gap BUN Creatinine Estim Creat Clear Calc Estimated GFR POC Glucose 329 H 269 H 241 H Random Glucose Calcium Phosphorus Magnesium Albumin 09/24/23 09/24/23 09/24/23 00:56 01:55 04:55 WBC 9.6 RBC 4.09 L Hgb 12.0 L Hct 36.0 L MCV 88.0 MCH 29.3 MCHC 33.3 RDW 12.7 Plt Count 238 MPV 9.7 Immature Gran % (Auto) 0.3 Neut % (Auto) 61.0 Lymph % (Auto) 23.9 [place] % (Auto) 10.6 Eos % (Auto) 4.0 Baso % (Auto) 0.2 Lymph # (Auto) 2.3 [place] # (Auto) 1.0 Eos # (Auto) 0.4 Baso # (Auto) 0.0 Abs Immat Gran (auto) 0.03 Absolute Neuts (auto) 5.9 Absolute Nucleated RBC 0.000 Nucleated RBC % (auto) 0.0 VBG pH VBG pCO2 VBG pO2 VBG HCO3 VBG O2 Saturation VBG Base Excess Sodium 136 137 Potassium 3.5 3.9 Chloride 103 103 Carbon Dioxide 21 L 21 L Anion Gap 16 17 BUN 8 L 7 L Creatinine 0.81 0.77 Estim Creat Clear Calc 183.6 193.2 Estimated GFR > 60 > 60 POC Glucose 244 H Random Glucose 243 H 268 H Calcium 9.2 8.9 Phosphorus 3.8 3.8 Magnesium 1.8 1.8 Albumin 3.2 L 09/24/23 09/24/23 04:59 07:15 WBC RBC Hgb Hct MCV MCH MCHC RDW Plt Count MPV Immature Gran % (Auto) Neut % (Auto) Lymph % (Auto) [place] % (Auto) Eos % (Auto) Baso % (Auto) Lymph # (Auto) [place] # (Auto) Eos # (Auto) Baso # (Auto) Abs Immat Gran (auto) Absolute Neuts (auto) Absolute Nucleated RBC Nucleated RBC % (auto) VBG pH 7.42 VBG pCO2 30 VBG pO2 78 VBG HCO3 20 L VBG O2 Saturation 96.0 VBG Base Excess -2.8 Sodium Potassium Chloride Carbon Dioxide Anion Gap BUN Creatinine Estim Creat Clear Calc Estimated GFR POC Glucose 295 H Random Glucose Calcium Phosphorus Magnesium Albumin Microbiology Microbiology Results: Microbiology 09/22/23 14:57 Blood - Venous Blood Culture - Preliminary No growth after 24 hours. 09/22/23 14:57 Blood - Venous Blood Culture - Preliminary No growth after 24 hours. Progress Note: A&P Assessment and plan (1) DKA (diabetic ketoacidosis): Status: Acute (2) Obesity: Status: Acute Plan Patient is a 37 Y M with psychiatric co-morbidities, insulin-dependent diabetes mellitus presenting initially on 09/21 w/ vomiting, diarrhea, found to be in diabetic ketoacidosis N: no acute issues CV: no acute issues R: no acute issues GI: diabetic diet; diarrhea, on ceftriaxone/metronidazole : no acute issues H: no acute issues ID: diarrhea, on ceftriaxone/metronidazole; to follow-up blood, urine cultures E: insulin-dependent diabetes mellitus; to monitor hypo-/hyper-glycemia Quality Stroke Does the patient have a stroke diagnosis?: No VTE Prior VTE?: No VTE Risk Level:: Medical - low VTE Device Contraindication: N/A - Device Ordered VTE Drug Contraindication: N/A - Med Ordered
--- NOTE | 2023-09-24 07:53 | ECG_ITS ---
Test Reason : qtc Blood Pressure : / mmHG Vent. Rate : 105 BPM Atrial Rate : 105 BPM P-R Int : 122 ms QRS Dur : 084 ms QT Int : 330 ms P-R-T Axes : 049 039 011 degrees QTc Int : 436 ms Sinus tachycardia Otherwise normal ECG When compared with ECG of 22-SEP-2023 14:35, No significant change was found Referred By: Charisma Recinos Electronically Signed By:PILO AGUILAR
[2023-09-24] MEDS: 0.9 % Sodium Chloride Flush 3 ML SYRINGE IVFLUSH ×3 (08:08→21:08)
[2023-09-24] MEDS: Insulin Lispro 100 UNIT/ML 3 ML VIAL 10 UNIT SUBCUT ×4 (08:10→17:11)
[2023-09-24 09:23] LABS: Glucose, Whole Blood 396 mg/dL (60-115)
[2023-09-24] MEDS: cefTRIAXone sodium 2 GM in 0.9 % Sodium Chloride 50 ML IV (09:45)
[2023-09-24] MEDS: lisinopriL 20 MG TABLET PO (09:45)
[2023-09-24] MEDS: Insulin Regular, Human 100 UNIT/ML 10 ML VIAL 10 UNIT IVPUSH (09:46)
[2023-09-24] MEDS: Insulin Glargine,Hum.rec.anlog 100 UNIT/ML 10 ML VIAL 40 UNIT SUBCUT ×2 (09:47→21:07)
[2023-09-24] MEDS: OXcarbazepine 150 MG TABLET PO ×2 (10:40→21:06)
[2023-09-24 10:49] LABS: Glucose, Whole Blood 378 mg/dL (60-115)
[2023-09-24] MEDS: Insulin Regular, Human 100 UNIT/ML 10 ML VIAL 15 UNIT IVPUSH (11:05)
[2023-09-24 12:09] LABS: Glucose, Whole Blood 280 mg/dL (60-115)
[2023-09-24] MEDS: hydrOXYzine HCL 50 MG TABLET PO ×2 (12:12→18:12)
[2023-09-24 13:18] LABS: Glucose, Whole Blood 331 mg/dL (60-115)
--- NOTE | 2023-09-24 14:53 | MHC.CM.PN ---
Pt continues care in ICU for DKA. BG readings improved as is the anion gap. Pt's guardianship scanned into EMR. Pt will need to be screened by Care team once medically stable to ensure he is appropriate to return to [place]. Goals of care today are to recheck BG and if they remain stable, pt will transfer to the medical floor for continued care. CM to follow
[2023-09-24] MEDS: Furosemide 20 MG/2 ML VIAL 10 MG IVPUSH (15:04)
[2023-09-24 17:08] LABS: Glucose, Whole Blood 264 mg/dL (60-115)
[2023-09-24 20:59] LABS: Glucose, Whole Blood 332 mg/dL (60-115)
[2023-09-24] MEDS: Atorvastatin Calcium 20 MG TABLET PO (21:06)
[2023-09-24] MEDS: Insulin Lispro 100 UNIT/ML 3 ML VIAL SUBCUT (21:07)
[2023-09-25] VITALS (14 sets, daily range): BP systolic 121–154; BP diastolic 61–88; PULSE 22–111; RESP 15–26; TEMP 36–36.4; O2SAT 92–95; BMI 47.2
[2023-09-25] MEDS: metroNIDAZOLE/NS 500 MG/100 ML PIGGYBACK 100 MG IV ×2 (00:26→08:28)
[2023-09-25 05:12] LABS: MANUAL DIFF FLAG NO
[2023-09-25 05:13] LABS: Basophils Percent Auto 0.1 % (0-2); Eosinophils Absolute Auto 0.4 X10*3/uL (0.0-0.4); Eosinophils Percent Auto 3.7 % (0-4); Hematocrit 37.9 % (42.0-52.0); Hemoglobin 12.7 g/dl (14.0-18.0); Imm Gran Abs Auto 0.05 X10*3/uL (0.00-0.03); Imm Gran Pct Auto 0.5 % (0.0-0.4); Lymphocytes Absolute Auto 2.1 X10*3/uL (1.2-4.9); Lymphocytes Percent Auto 21.3 % (20-40); Mean Corpuscular HGB Conc 33.5 g/dl (31.0-36.0); Mean Corpuscular Hemoglobin 29.3 pg (27.0-33.0); Mean Corpuscular Volume 87.5 fL (80.0-98.0); Mean Platelet Volume 9.6 fL (9.4-12.4); Monocytes Percent Auto 10.2 % (2-11); Neutrophils Absolute Auto 6.4 x10*3/uL (2.0-8.3); Neutrophils Percent Auto 64.2 % (45-73); Platelet Count 200 X10*3/uL (160-400); Red Blood Count 4.33 X10*6/uL (4.60-5.80); Red Cell Distribution Width 12.7 % (11.0-16.0)
[2023-09-25 05:36] LABS: Albumin Level 3.1 g/dL (3.5-5.0); Anion Gap 17 (12-20); Blood Urea Nitrogen 7 mg/dL (9-16); Calcium 9.1 mg/dL (8.4-10.2); Carbon Dioxide 22 mmol/L (22-29); Chloride 102 mmol/L (96-108); Creatinine Clr Calc Pharmacy 186.6; Estimated Glomerular Filt Rate > 60; Glucose Random 244 mg/dL (60-115); Magnesium 1.8 mg/dL (1.6-2.6); Phosphorus 3.6 mg/dL (2.7-4.5); Potassium 3.7 mmol/L (3.3-5.1); Sodium 137 mmol/L (135-145)
[2023-09-25 07:23] LABS: Glucose, Whole Blood 242 mg/dL (60-115)
--- NOTE | 2023-09-25 07:38 | PM.CCPN ---
Subjective Subjective Date of Service: 09/25/23 Interval History: no significant overnight events Critical Care Time (minutes): 60 Physical Exam Vital Signs: Vital Signs: Last Vital Signs Temp 96.8 F 09/25/23 06:00 Pulse 83 09/25/23 07:00 Resp 15 09/25/23 07:00 BP 129/63 09/25/23 07:00 Pulse Ox 95 09/25/23 07:00 O2 Del Method Nasal Cannula 09/25/23 06:00 O2 Flow Rate 1 09/25/23 06:00 BMI result Body Mass Index 47.1 Const: General: cooperative, healthy appearing, comfortable, no acute distress, well developed, alert, awake and Physically active Orientation/consciousness: patient oriented x3 HEENT: Head: Yes normal to inspection, Yes normocephalic and Yes atraumatic Eyes: General: appearance normal, both eyes and all related structures Neck: Neck: Yes normal visual inspection, Yes full ROM, Yes no meningeal signs, Yes trachea midline and Yes supple Chest: Chest palpation & inspection: normal inspection of the chest Resp: Other: diminished breath sounds throughout; no appreciable rales, rhonchi, wheezing Cardio: Rate: regular rate Rhythm: regular rhythm GI: Inspection: Yes normal to inspection, No Abdominal wall edema and No distended Palpation (GI): Soft to palpation, not firm, nontender, no guarding and not rigid : Male General Exam: Yes normal external exam Skin: General skin exam: no rashes or lesions noted Neuro: General: patient oriented x3, tone normal, moves all extremities, no meningeal signs and no focal motor deficits Extrem: Other: 1+ pitting edema to bilateral knees General: Yes normal to inspection, Yes full ROM and Yes capillary refill normal Psych: Appearance: grossly normal Objective Data Labs 09/25/23 05:04 09/25/23 05:04 Labs: Laboratory Results - last 24 hr 09/24/23 09/24/23 09/24/23 09:19 10:45 12:06 WBC RBC Hgb Hct MCV MCH MCHC RDW Plt Count MPV Immature Gran % (Auto) Neut % (Auto) Lymph % (Auto) [place] % (Auto) Eos % (Auto) Baso % (Auto) Lymph # (Auto) [place] # (Auto) Eos # (Auto) Baso # (Auto) Abs Immat Gran (auto) Absolute Neuts (auto) Absolute Nucleated RBC Nucleated RBC % (auto) Sodium Potassium Chloride Carbon Dioxide Anion Gap BUN Creatinine Estim Creat Clear Calc Estimated GFR POC Glucose 396 H* 378 H* 280 H Random Glucose Calcium Phosphorus Magnesium Albumin 09/24/23 09/24/23 09/24/23 13:15 17:05 20:55 WBC RBC Hgb Hct MCV MCH MCHC RDW Plt Count MPV Immature Gran % (Auto) Neut % (Auto) Lymph % (Auto) [place] % (Auto) Eos % (Auto) Baso % (Auto) Lymph # (Auto) [place] # (Auto) Eos # (Auto) Baso # (Auto) Abs Immat Gran (auto) Absolute Neuts (auto) Absolute Nucleated RBC Nucleated RBC % (auto) Sodium Potassium Chloride Carbon Dioxide Anion Gap BUN Creatinine Estim Creat Clear Calc Estimated GFR POC Glucose 331 H 264 H 332 H Random Glucose Calcium Phosphorus Magnesium Albumin 09/25/23 09/25/23 05:04 07:20 WBC 10.0 RBC 4.33 L Hgb 12.7 L Hct 37.9 L MCV 87.5 MCH 29.3 MCHC 33.5 RDW 12.7 Plt Count 200 MPV 9.6 Immature Gran % (Auto) 0.5 H Neut % (Auto) 64.2 Lymph % (Auto) 21.3 [place] % (Auto) 10.2 Eos % (Auto) 3.7 Baso % (Auto) 0.1 Lymph # (Auto) 2.1 [place] # (Auto) 1.0 Eos # (Auto) 0.4 Baso # (Auto) 0.0 Abs Immat Gran (auto) 0.05 H Absolute Neuts (auto) 6.4 Absolute Nucleated RBC 0.000 Nucleated RBC % (auto) 0.0 Sodium 137 Potassium 3.7 Chloride 102 Carbon Dioxide 22 Anion Gap 17 BUN 7 L Creatinine 0.80 Estim Creat Clear Calc 186.6 Estimated GFR > 60 POC Glucose 242 H Random Glucose 244 H Calcium 9.1 Phosphorus 3.6 Magnesium 1.8 Albumin 3.1 L Microbiology Microbiology Results: Microbiology 09/22/23 14:57 Blood - Venous Blood Culture - Preliminary No growth after 48 hours. 09/22/23 14:57 Blood - Venous Blood Culture - Preliminary No growth after 48 hours. Progress Note: A&P Assessment and plan (1) DKA (diabetic ketoacidosis): Status: Acute (2) Obesity: Status: Acute Plan Patient is a 37 Y M with psychiatric co-morbidities, insulin-dependent diabetes mellitus presenting initially on 09/21 w/ vomiting, diarrhea, found to be in diabetic ketoacidosis N: no acute issues CV: no acute issues R: no acute issues; suspect MILVIA, to perform sleep study GI: diabetic diet; diarrhea, on ceftriaxone/metronidazole : no acute issues H: no acute issues ID: diarrhea, on ceftriaxone/metronidazole; to follow-up blood, urine cultures E: insulin-dependent diabetes mellitus c/b DKA; to monitor hypo-/hyper-glycemia Quality Stroke Does the patient have a stroke diagnosis?: No VTE Prior VTE?: No VTE Risk Level:: Medical - low VTE Device Contraindication: N/A - Device Ordered VTE Drug Contraindication: N/A - Med Ordered
[2023-09-25] MEDS: Furosemide 20 MG/2 ML VIAL 10 MG IVPUSH (08:08)
[2023-09-25] MEDS: Insulin Lispro 100 UNIT/ML 3 ML VIAL SUBCUT ×3 (08:10→12:00)
[2023-09-25] MEDS: Insulin Glargine,Hum.rec.anlog 100 UNIT/ML 10 ML VIAL 40 UNIT SUBCUT (08:11)
[2023-09-25] MEDS: lisinopriL 20 MG TABLET PO (08:13)
[2023-09-25] MEDS: OXcarbazepine 150 MG TABLET PO (08:14)
[2023-09-25] MEDS: 0.9 % Sodium Chloride Flush 3 ML SYRINGE IVFLUSH (08:20)
[2023-09-25 11:36] LABS: Glucose, Whole Blood 311 mg/dL (60-115)
[2023-09-25] MEDS: cefTRIAXone sodium 2 GM in 0.9 % Sodium Chloride 50 ML IV (11:54)
[2023-09-25 13:05] LABS: Glucose, Whole Blood 268 mg/dL (60-115)
--- NOTE | 2023-09-25 14:11 | PC.NURSE ---
Pt TOD 1348. Called [facility] at 1410 spoke to Fred. [facility] Declines. Case #[id number]
--- NOTE | 2023-09-25 14:32 | PC.NURSE ---
Pt arrived from ICU by wheelchair @ aprox 1255. Pt ambulated to bed on 2L NC. Pt immediately started gasping for breath. Sat ot up to high fowlers. Pt turned blue and unresponsive to verbal commands and sternal rub. Code blue called @ 1257 and chest compression we initiated.
--- NOTE | 2023-09-25 14:37 | PC.RT ---
Code Blue called, 3 Rt's arrived to Code. Pt was intubated by DR. Thompson 7.5 ETT 23 lip. + colormetry and quantative C02 9. BS equal bilateral. CPR in progress. Code lasted 50 minutes and .
--- NOTE | 2023-09-25 14:53 | PM.CCN ---
Critical Care Event Note Summary Date of Service: 09/25/23 Code activated: Yes Narrative: This case had a high probability of a clinically significant, sudden, or life threatening deterioration of this patient's condition which required my full and direct attention, intervention and personal management. Critical Care Time (minutes): 120 Comment: Mr. Lopez was hemodynamically and clinically stable in the ICU, with resolution of his presenting diabetic ketoacidosis; Mr. Lopez was transferred to medicine, floor; per floor nursing, Mr. Lopez was walking from his wheelchair to his bed, developed dyspnea, then became cyanotic and unresponsive; no pulse was appreciated, and CPR was started; Mr. Lopez was quickly intubated by the emergency department physician; around 6 breaths per minute were delivered without any appreciable resistance; initial end-tidal carbon dioxide was 10; after the initial 5 minutes of CPR, end-tidal carbon dioxide increased to 30s-40s, where it stayed for the remainder of his resuscitation; a total of 50 minutes of CPR was performed, during which Mr. Posada cardiac rhythm was asystole at every pulse check; multiple rounds of epinephrine, bicarbonate, and calcium were given; considering Mr. Dunlaps reported dyspnea and cyanosis, treatment-dose TNK was given early in resuscitation; a bedside ultrasound was used; no evidence suggestive of pneumothorax, pericardial effusion, nor pulmonary embolism was appreciated; however, complete cardiac standstill was appreciated during multiple pulse checks; both bedside ultrasound and doppler were used to appreciate any pulse, though none was appreciated during multiple pulse checks; the hospitalist contacted Mr. Dunlaps mother, who was unable to come to the hospital unfortunately due to her own health issues; after a total of 50 minutes in asystole without appreciable return of spontaneous circulation, Mr. Lopez was declared at 13:48; our detention attendant was at the bedside and a moment of silence was performed to honor Mr. Lopez
--- NOTE | 2023-09-25 15:52 | PM.DDS ---
Discharge Sum: Prov Provider Primary care physician: Unknown Physician Admitting clinician: Adalberto Porras Pronouncing clinician: Charisma Recinos Discharge Sum: Diag PCOD Cause of : Respiratory arrest Contributing Factors (1) Diabetes: (2) Hypertension: (3) Obesity: Discharge Sum: Summary Date and Time Date of admission: 09/22/23 14:03 Summary Details: Mr. Lopez is a 37 year-old male with metabolic syndrome including diabetes mellitus, hypertension, and obesity, as well as psychiatric comorbidities, who initially presented to the emergency department from a psychiatric facility with nausea, vomiting, and diarrhea; in the emergency department, Mr. Lopez was found to be in diabetic ketoacidosis complicated by acute renal insufficiency; Mr. Lopez was admitted to the intensive care unit on the diabetic ketoacidosis protocol, with interval improvement of his diabetic ketoacidosis and acute renal insufficiency; Mr. Lopez was also found to have leukocytosis upon presentation; given such, an infectious work-up including chest x-ray, urinalysis, blood cultures, and a CT scan of his abdomen and pelvis were performed, though were grossly unrevealing; given Mr. Lpoez's diarrhea, he was started on empiric ceftriaxone and metronidazole; Mr. Lopez was hemodynamically and clinically stable throughout his ICU stay; he was maintained in the ICU for optimization of his subcutaneous insulin regimen; on 09/24, Mr. Lopez was transferred to the medicine floor; upon his arrival to the floor, Mr. Lopez was ambulating from his wheelchair to his bed when he became dyspneic, cyanotic, and unresponsive; Mr. Lopez had no appreciable pulse, and resuscitation was immediately started; a total of 50 minutes of resuscitation was performed during which intubation, multiple rounds of code-dose epinephrine, bicarbonate, calcium were administered, TNK was administered, and multiple assessments with bedside ultrasound we made; Mr. Lopez was in asystole for the entirety of the resuscitation; after 50 minutes of resuscitation, Mr. Lopez remained in asystole with no appreciable return of spontaneous circulation, and was declared at 13:48; Mr. Lopez's mother was contacted, and condolences were given to her; Mr. Lopez's guardian, Bernard Alvarenga, was also notified; Mr. Lopez's psychiatric facility contacted our hospital, and were made aware that he is now ; lastly, the medical claims analyst was notified; Additional Data Confirmation of as documented by pronouncing clinician: no pulse, no respirations, no heart sounds and pupils fixed and dilated Family: contacted Additional persons at bedside: calibrator barometers Attending/PCP notified?: Yes Attending physician: Charisma Recinos MD Was code activated?: Yes finished cloth examiner notified?: Yes Organ bank notified?: Yes
== END 2023-09-25 13:48 | disposition expired | DRG 638 ==
LOC: HO.ED 14:01 → HO.EDOVER 14:12 → HO.ICU 15:33 → HO.S3 09-25 11:58 → HO.ICU 09-25 13:07 → HO.S3 09-25 13:47
PROVIDERS: Internal Medicine; Nurse Practitioner Family; Admitting Provider Internal Medicine Critical Care Medicine; Emergency Provider Emergency Medicine; Visit Provider Internal Medicine Critical Care Medicine
DX: E10.10 Type 1 diabetes mellitus with ketoacidosis without coma (principal); N17.9 Acute kidney failure, unspecified; Z68.42 Body mass index [BMI] 45.0-49.9, adult; I10 Essential (primary) hypertension; I46.9 Cardiac arrest, cause unspecified; G47.33 Obstructive sleep apnea (adult) (pediatric); E78.5 Hyperlipidemia, unspecified; F31.9 Bipolar disorder, unspecified; R62.50 Unspecified lack of expected normal physiological development in childhood; E66.9 Obesity, unspecified; Z79.84 Long term (current) use of oral hypoglycemic drugs; Z79.899 Other long term (current) drug therapy
CPT/HCPCS: 36415; 71045; 74177; 80048; 80053; 81001; 82010; 82040; 82803; 82947; 83690; 83735; 84100; 85025; 85027; 87040; 93005; 94799; 99285; J0171; J0696; J1644; J1836; J1940; J2060; J2405; J2470; J3101; J7120; Q9967

== ENCOUNTER → 2023-09-22 13:32 | Outpatient (BNV) | payer MEDICARE, MEDICAID, SELFPAY | PROVIDERS: Admitting Provider Internal Medicine Critical Care Medicine; Emergency Provider Emergency Medicine; Visit Provider Internal Medicine | DX: R07.9 Chest pain, unspecified (principal) | CPT/HCPCS: 93010 ==

== ENCOUNTER 2023-09-22 14:03 | Outpatient (BNV) | payer MEDICARE, MEDICAID, SELFPAY | END 2023-09-24 07:53 | PROVIDERS: Admitting Provider Internal Medicine Critical Care Medicine; Emergency Provider Emergency Medicine; Visit Provider Internal Medicine | DX: I45.81 Long QT syndrome (principal) | CPT/HCPCS: 93010 ==

== ENCOUNTER → 2023-09-22 14:03 | Outpatient (BNV) | payer MEDICARE, MEDICAID, SELFPAY | PROVIDERS: Admitting Provider Internal Medicine Critical Care Medicine; Emergency Provider Emergency Medicine; Visit Provider Internal Medicine Critical Care Medicine | DX: E11.10 Type 2 diabetes mellitus with ketoacidosis without coma (principal); I10 Essential (primary) hypertension; E66.9 Obesity, unspecified | CPT/HCPCS: 99223; 99238; 99291; 99292 ==